=== PATIENT | male | born 1985 | race African-American/Black ===

== ENCOUNTER 2017-01-18 23:01 | Inpatient (IN) | payer SELFPAY ==
[~2017-01-18] VITALS: Ht 188 cm; Wt 97.5 kg
[2017-01-18 23:40] LABS: Basophils # (auto) 0.1 uL; Basophils % (auto) 0.7 % (0.0-2.0); Eosinophils # (auto) 0.2 uL; Eosinophils % (auto) 2.6 % (0.0-7.0); Hematocrit 43.8 % (41.0-53.0); Hemoglobin 14.1 g/dL (13.5-17.5); Lymphocytes # (auto) 2.7 uL; Mean Corpuscular Hemoglobin 29.2 pg (28.0-32.0); Mean Corpuscular Hgb Conc. 32.1 g/dL (32.0-36.0); Mean Corpuscular Volume 90.9 fL (80.0-100.0); Mean Platelet Volume 9.8 fL (7.4-10.4); Monocytes # (auto) 0.8 uL; Monocytes % (auto) 9.3 % (0.0-12.0); Neutrophils # (auto) 4.8 uL; Neutrophils % (auto) 56.4 % (37.0-80.0); Platelet Count (auto) 165 10^3/uL (140-450); Red Cell Distribution Width 13.3 % (11.6-16.0); White Blood Cell 8.6 10^3/uL (4.4-10.8)
[2017-01-19 00:03] LABS: INR 0.99 (0.9-1.15); Partial Thromboplastin Time 24.6 sec (22.64-33.71); Prothrombin Time 10.8 sec (9.37-12.3)
[2017-01-19 00:07] LABS: Albumin 3.9 g/dL (3.4-5.0); BUN/Creatinine Ratio 8.4; Calcium 8.3 mg/dL (8.5-10.1); Magnesium 2.2 mg/dL (1.6-2.6); Potassium 3.9 mmol/L (3.5-5.1)
[2017-01-19 00:35] LABS: Bilirubin, Total 0.3 mg/dL (0.2-1.0); Total Protein 7.6 g/dL (6.4-8.2)
[2017-01-19] MEDS ORDERED: MORPHINE SULFATE 4 MG/ML SYRG IV ONE (02:00)
[2017-01-19] MEDS ORDERED: ONDANSETRON HCL 4 MG/2 ML VIAL IV ONE (02:00)
[2017-01-19 02:02] LABS: B-Type Natriuretic Peptide < 5.0 pg/mL (0-100)
[2017-01-19 02:48] LABS: Urine RBC None Seen /hpf (0 - 3)
[2017-01-19 03:14] LABS: Urine Bilirubin Negative (Negative); Urine Blood Negative /uL (Negative); Urine Color Yellow (Yellow); Urine Glucose Normal (Normal); Urine Ketone Negative (Negative); Urine Mucus FEW (None Seen); Urine Nitrite Negative (Negative); Urine Urobilinogen Normal (Negative); Urine pH 6.5 (5.0-8.0)
[2017-01-19] MEDS ORDERED: MORPHINE SULF INJ 2 MG/ML SYRINGE 1ML IV PRN (06:30)
[2017-01-19] MEDS ORDERED: ONDANSETRON HCL 4 MG/2 ML VIAL IV PRN (06:30)
[2017-01-19] MEDS ORDERED: TEMAZEPAM 15 MG CAP PO PRN (06:30)
[2017-01-19] MEDS ORDERED: HYDROcodone-ACET 5/325MG TAB PO PRN (06:30)
[2017-01-19] MEDS ORDERED: NITROGLYCERIN 0.4 MG SL TAB SL PRN (06:30)
[2017-01-19] MEDS: IBUPROFEN 600 MG TAB PO SCH ×2 (06:36→12:00)
[2017-01-19 08:50] VITALS: BP 133/70
[2017-01-19] MEDS ORDERED: ENOXAPARIN SOD 40 MG/0.4 ML SYRINGE SC SCH (10:00)
[2017-01-19] MEDS ORDERED: FAMOTIDINE 20 MG TAB PO SCH (10:00)
[2017-01-19 13:00] VITALS: BP 140/67
[2017-01-19 17:00] VITALS: BP 126/64
== END 2017-01-19 19:42 | disposition left against medical advice (07) | DRG 313 ==
LOC: ER 23:03 → TELE 23:04 → TELE-E-ADS 01-19 08:46 → TELE-WESTW 01-19 11:36
PROVIDERS: ADMIT Nurse Practitioner; ATTEND Nurse Practitioner
DX: R07.89 Other chest pain (principal); I31.9 Disease of pericardium, unspecified; R00.1 Bradycardia, unspecified; Z53.21 Procedure and treatment not carried out due to patient leaving prior to being seen by health care provider; F12.90 Cannabis use, unspecified, uncomplicated
CPT/HCPCS: 36415; 71250; 80053; 80307; 81001; 83735; 83880; 84484; 85025; 85610; 85730; 93306; 96372; 96374; 96375; J2405